=== PATIENT | female | born 1950 | race Caucasian/White ===

== ENCOUNTER 2019-10-07 13:13 | Inpatient (IN) ==
[2019-10-07] MEDS ORDERED: CeFAZolin Syr 2,000MG/20 ML 2,000 MG/20 ML SYRINGE IVPB ONE (13:28)
[2019-10-07] MEDS ORDERED: Ringers Solution, Lactated 1,000 ML IVC SCH ×2 (13:30→20:28)
[2019-10-07] MEDS ORDERED: Naloxone 0.4 MG/ML INJ IVP PRN ×2 (14:20→20:28)
[2019-10-07] MEDS ORDERED: *HR* Labetalol 20 MG/4 ML SYRINGE IVP PRN (14:20)
[2019-10-07] MEDS ORDERED: Gabapentin 300 MG CAPSULE PO ONE (14:20)
[2019-10-07] MEDS ORDERED: *HR* HYDROmorphone 2 MG/ML SYRINGE IVP PRN (14:20)
[2019-10-07] MEDS ORDERED: Ondansetron 4 MG/2 ML VIAL IVP ONE (14:20)
[2019-10-07] MEDS ORDERED: *HR* OxyCODONE Immed Rel 5 MG TABLET PO PRN (14:20)
[2019-10-07] MEDS ORDERED: *HR* FentaNYL (PF) 100 MCG/2 ML VIAL ONE (15:37)
[2019-10-07] MEDS ORDERED: *HR* Propofol 200 MG/20 ML VIAL IVP ONE (15:37)
[2019-10-07] MEDS ORDERED: Lidocaine -MPF 2% 2 ML VIAL ONE (15:37)
[2019-10-07] MEDS ORDERED: Ondansetron 4 MG/2 ML VIAL ONE (15:37)
[2019-10-07] MEDS ORDERED: *HR* Succinylcholine 200 MG/10 ML VIAL IVP ONE (15:37)
[2019-10-07] MEDS ORDERED: ROPIVACAINE/PF/NS 0.25% 1 EACH SYRINGE INTRAART ONE (15:46)
[2019-10-07] MEDS ORDERED: Ropivacaine/PF 0.5% 30 ML VIAL ONE (15:46)
[2019-10-07] MEDS ORDERED: Ethanol\\Acetic Acid\\Na Ace\\Ben 1,000 ML IRRIG.SOLN IR ONE (15:47)
[2019-10-07] MEDS ORDERED: Dexamethasone 4 MG/ML VIAL ONE (17:31)
[2019-10-07] MEDS ORDERED: *HR* Enoxaparin 30 MG/0.3 ML SYRINGE SQ SCH (18:00)
[2019-10-07 19:13] LABS: Hematocrit 27.6 % (35.3-44.9)
[2019-10-07 19:14] LABS: Hemoglobin 9.2 g/dL (11.5-15.4)
[2019-10-07] MEDS ORDERED: Sennosides 8.6 MG TABLET PO PRN (20:28)
[2019-10-07] MEDS ORDERED: MOM Conc 10 ML UD.LIQ PO PRN (20:28)
[2019-10-07] MEDS ORDERED: Ondansetron 4 MG/2 ML VIAL IVP PRN (20:28)
[2019-10-07] MEDS ORDERED: Temazepam 15 MG CAPSULE PO PRN (21:01)
[2019-10-07] MEDS: Pregabalin 75 MG CAPSULE PO SCH (22:11)
[2019-10-08 02:36] LABS: Hematocrit 29.3 % (35.3-44.9); Hemoglobin 9.8 g/dL (11.5-15.4)
[2019-10-08 02:54] LABS: Calcium 8.8 mg/dL (8.6-10.3); Potassium 4.6 mEq/L (3.5-5.1)
[2019-10-08] MEDS: *HR* Enoxaparin 30 MG/0.3 ML SYRINGE SQ SCH ×2 (05:41→16:28)
[2019-10-08] MEDS: *HR* OxyCODONE Immed Rel 5 MG TABLET PO PRN ×4 (06:13→20:29)
[2019-10-08] MEDS ORDERED: (Mirabegron [Myrbetriq] 50 MG) PO SCH (09:00)
[2019-10-08] MEDS: Pregabalin 75 MG CAPSULE PO SCH ×2 (09:43→16:28)
[2019-10-08] MEDS: amLODIPine 5 MG TABLET PO SCH (09:44)
[2019-10-08] MEDS: Metoprolol XL (24 HR) Succ 25 MG TAB.ER.24H PO SCH (09:45)
[2019-10-08] MEDS: Vitamin B Complex/Vit C/Vit E 1 EACH TABLET PO SCH (09:45)
[2019-10-08] MEDS: (Mirabegron [Myrbetriq] 50 MG) PO SCH (12:58)
[2019-10-09] MEDS: *HR* OxyCODONE Immed Rel 5 MG TABLET PO PRN ×5 (00:44→21:56)
[2019-10-09 04:26] LABS: Hematocrit 25.7 % (35.3-44.9)
[2019-10-09 04:32] LABS: Hemoglobin 8.2 g/dL (11.5-15.4)
[2019-10-09 04:42] LABS: Calcium 8.5 mg/dL (8.6-10.3); Potassium 4.1 mEq/L (3.5-5.1)
[2019-10-09] MEDS: *HR* Enoxaparin 30 MG/0.3 ML SYRINGE SQ SCH ×2 (04:54→18:04)
[2019-10-09] MEDS: Metoprolol XL (24 HR) Succ 25 MG TAB.ER.24H PO SCH (10:15)
[2019-10-09] MEDS: Vitamin B Complex/Vit C/Vit E 1 EACH TABLET PO SCH (10:15)
[2019-10-09] MEDS: Pregabalin 75 MG CAPSULE PO SCH ×2 (10:15→18:04)
[2019-10-09] MEDS: amLODIPine 5 MG TABLET PO SCH (10:16)
[2019-10-09] MEDS: (Mirabegron [Myrbetriq] 50 MG) PO SCH (10:18)
[2019-10-10] MEDS: *HR* OxyCODONE/APAP 5/325 TABLET PO PRN (05:17)
[2019-10-10] MEDS: *HR* Enoxaparin 30 MG/0.3 ML SYRINGE SQ SCH ×2 (05:18→16:55)
[2019-10-10] MEDS: Metoprolol XL (24 HR) Succ 25 MG TAB.ER.24H PO SCH (09:36)
[2019-10-10] MEDS: amLODIPine 5 MG TABLET PO SCH (09:36)
[2019-10-10] MEDS: Pregabalin 75 MG CAPSULE PO SCH ×2 (09:36→16:54)
[2019-10-10] MEDS: Vitamin B Complex/Vit C/Vit E 1 EACH TABLET PO SCH (09:37)
[2019-10-10] MEDS: (Mirabegron [Myrbetriq] 50 MG) PO SCH (09:38)
[2019-10-10 09:49] LABS: Basophils % 0.3 %; Eosinophils # 0.3 K/mcL (0.0-0.6); Eosinophils % 2.1 %; Hematocrit 27.1 % (35.3-44.9); Hemoglobin 8.9 g/dL (11.5-15.4); Immature Granulocytes % 1.2 % (0-4); Lymphocytes # 3.1 K/mcL (0.6-4.6); Lymphocytes % 25.2 %; Mean Corpuscular HGB Conc 32.8 g/dL (31.6-35.5); Mean Corpuscular Hemoglobin 33.3 pg (28.0-33.3); Mean Corpuscular Volume 101.5 fL (83.0-100.0); Mean Platelet Volume 10.5 fL (9.4-12.4); Monocytes % 8.4 %; Neutrophils # 7.6 K/mcL (1.6-8.9); Platelet Count 167 K/mcL (140-400); Red Blood Count 2.67 M/mcL (3.82-4.97); Red Cell Distribution Width 14.6 % (11.5-14.5); Segmented Neutrophils % 62.8 %; White Blood Count 12.1 K/mcL (4.3-11.1)
[2019-10-10 10:22] LABS: Calcium 8.6 mg/dL (8.6-10.3); Potassium 4.2 mEq/L (3.5-5.1)
[2019-10-10] MEDS: *HR* OxyCODONE Immed Rel 5 MG TABLET PO PRN (22:05)
[2019-10-11] MEDS: *HR* Enoxaparin 30 MG/0.3 ML SYRINGE SQ SCH (06:01)
[2019-10-11 08:16] LABS: Basophils % 0.2 %; Eosinophils # 0.3 K/mcL (0.0-0.6); Eosinophils % 2.6 %; Hematocrit 27.4 % (35.3-44.9); Hemoglobin 8.9 g/dL (11.5-15.4); Immature Granulocytes % 0.9 % (0-4); Lymphocytes # 1.7 K/mcL (0.6-4.6); Lymphocytes % 16.2 %; Mean Corpuscular HGB Conc 32.5 g/dL (31.6-35.5); Mean Corpuscular Volume 101.5 fL (83.0-100.0); Mean Platelet Volume 10.8 fL (9.4-12.4); Monocytes # 0.7 K/mcL (0.0-1.3); Monocytes % 6.2 %; Platelet Count 154 K/mcL (140-400); Red Cell Distribution Width 14.7 % (11.5-14.5); Segmented Neutrophils % 73.9 %; White Blood Count 10.8 K/mcL (4.3-11.1)
[2019-10-11 08:26] LABS: Calcium 8.6 mg/dL (8.6-10.3)
[2019-10-11] MEDS: Vitamin B Complex/Vit C/Vit E 1 EACH TABLET PO SCH (09:01)
[2019-10-11] MEDS: Metoprolol XL (24 HR) Succ 25 MG TAB.ER.24H PO SCH (09:01)
[2019-10-11] MEDS: Pregabalin 75 MG CAPSULE PO SCH (09:01)
[2019-10-11] MEDS: amLODIPine 5 MG TABLET PO SCH (09:02)
[2019-10-11] MEDS: (Mirabegron [Myrbetriq] 50 MG) PO SCH (09:03)
[2019-10-11] MEDS: *HR* OxyCODONE/APAP 5/325 TABLET PO PRN (09:07)
[2019-10-11 15:51] VITALS: BP 122/70
== END 2019-10-11 17:08 | DRG 483 ==
LOC: SAMDAY 13:13 → 3NENU 13:36
PROVIDERS: ADMIT Orthopaedic Surgery; ATTEND Orthopaedic Surgery

== ENCOUNTER 2020-09-04 13:41 | Inpatient (IN) ==
[2020-09-04] MEDS ORDERED: Naloxone 0.4 MG/ML INJ IVP PRN (16:55)
[2020-09-04] MEDS ORDERED: *HR* Promethazine 25 MG/ML VIAL IM PRN (17:26)
[2020-09-05 05:21] LABS: Hemoglobin 12.5 g/dL (11.5-15.4); Lymphocytes % 7.8 %; Mean Platelet Volume 10.9 fL (9.4-12.4)
[2020-09-05 05:22] LABS: Basophils % 0.6 %; Hematocrit 39.1 % (35.3-44.9); Immature Granulocytes % 6.9 % (0-4); Immature Platelets 6.6 % (1.1-6.1); Lymphocytes # 0.5 K/mcL (0.6-4.6); Mean Corpuscular Hemoglobin 30.9 pg (28.0-33.3); Mean Corpuscular Volume 96.5 fL (83.0-100.0); Monocytes # 0.5 K/mcL (0.0-1.3); Neutrophils # 4.9 K/mcL (1.6-8.9); Platelet Count 133 K/mcL (140-400); Red Blood Count 4.05 M/mcL (3.82-4.97); Segmented Neutrophils % 76.7 %; White Blood Count 6.4 K/mcL (4.3-11.1)
[2020-09-05 05:40] LABS: BUN/Creatinine Ratio 26 (6-26); Blood Urea Nitrogen 27 mg/dL (8-23); Calcium 8.8 mg/dL (8.6-10.3); Carbon Dioxide 23 mEq/L (23-29); Chloride 104 mEq/L (98-107); Glucose 165 mg/dL (70-105); Osmolality,Calculated 295 (280-300); Potassium 4.1 mEq/L (3.5-5.1); Sodium 138 mEq/L (136-145); eGFR For African Americans > 60 (> 60); eGFR For Non-African Americans 53 (> 60)
[2020-09-05 05:53] LABS: Anisocytosis 1+ (Not Present); Platelet Estimate Slight Decrease (Normal)
[2020-09-05] MEDS: *HR* Enoxaparin 40 MG/0.4 ML SYRINGE SQ SCH (06:40)
[2020-09-05] MEDS: cefTRIAXone 1,000 MG in Water for inj. (sterile) 10 ML IVP SCH (08:55)
[2020-09-05] MEDS: Furosemide 40 MG/4 ML VIAL IVP SCH (08:55)
[2020-09-05] MEDS: Dexamethasone 4 MG/ML VIAL IVP SCH (08:55)
[2020-09-05] MEDS: Spironolactone 25 MG TABLET PO SCH (08:56)
[2020-09-05] MEDS: Azithromycin 500 MG in 0.9 % Sodium Chloride 250 ML IVPB SCH (08:56)
[2020-09-05] MEDS: Metoprolol XL (24 HR) Succ 25 MG TAB.ER.24H PO SCH (15:26)
[2020-09-05] MEDS: amLODIPine 5 MG TABLET PO SCH (15:26)
[2020-09-05 15:50] LABS: Creatine Kinase 295 Units/L (30-223)
[2020-09-05] MEDS: Pregabalin 50 MG CAPSULE PO SCH (19:28)
[2020-09-05] MEDS: Melatonin 3 MG TABLET PO SCH (19:28)
[2020-09-06 04:09] LABS: Basophils % 0.3 %; Hematocrit 33.8 % (35.3-44.9); Hemoglobin 11.3 g/dL (11.5-15.4); Immature Granulocytes % 3.1 % (0-4); Lymphocytes # 0.7 K/mcL (0.6-4.6); Lymphocytes % 6.9 %; Mean Corpuscular HGB Conc 33.4 g/dL (31.6-35.5); Mean Corpuscular Hemoglobin 31.2 pg (28.0-33.3); Mean Corpuscular Volume 93.4 fL (83.0-100.0); Mean Platelet Volume 10.9 fL (9.4-12.4); Monocytes # 0.7 K/mcL (0.0-1.3); Monocytes % 7.3 %; Neutrophils # 7.8 K/mcL (1.6-8.9); Platelet Count 123 K/mcL (140-400); Red Blood Count 3.62 M/mcL (3.82-4.97); Red Cell Distribution Width 12.9 % (11.5-14.5); Segmented Neutrophils % 82.4 %; White Blood Count 9.4 K/mcL (4.3-11.1)
[2020-09-06 04:13] LABS: Albumin/Globulin Ratio 0.9 (1.1-2.2); Bilirubin,Direct 0.1 mg/dL (0.0-0.2); Bilirubin,Indirect 0.3 mg/dL (0.0-1.0); Bilirubin,Total 0.4 mg/dL (0.3-1.0); Calcium 8.5 mg/dL (8.6-10.3); Globulin 3.3 g/dL (2.4-3.5); Potassium 4.4 mEq/L (3.5-5.1); Total Protein 6.3 g/dL (6.4-8.9)
[2020-09-06] MEDS: *HR* Enoxaparin 40 MG/0.4 ML SYRINGE SQ SCH (05:16)
[2020-09-06] MEDS: Azithromycin 500 MG in 0.9 % Sodium Chloride 250 ML IVPB SCH (08:10)
[2020-09-06] MEDS: Furosemide 40 MG/4 ML VIAL IVP SCH (08:11)
[2020-09-06] MEDS: cefTRIAXone 1,000 MG in Water for inj. (sterile) 10 ML IVP SCH (08:11)
[2020-09-06] MEDS: Dexamethasone 4 MG/ML VIAL IVP SCH (08:11)
[2020-09-06] MEDS: Pregabalin 50 MG CAPSULE PO SCH ×2 (08:12→20:48)
[2020-09-06] MEDS: Metoprolol XL (24 HR) Succ 25 MG TAB.ER.24H PO SCH (08:12)
[2020-09-06] MEDS: Spironolactone 25 MG TABLET PO SCH (08:12)
[2020-09-06] MEDS: Vitamin B Complex/Vit C/Vit E 1 EACH TABLET PO SCH (08:12)
[2020-09-06] MEDS: amLODIPine 5 MG TABLET PO SCH (08:12)
[2020-09-06] MEDS: Melatonin 3 MG TABLET PO SCH (20:48)
[2020-09-06] MEDS ORDERED: 0.9 % Sodium Chloride 250 ML ONE (23:58)
[2020-09-07] MEDS ORDERED: *HR* LORazepam 1 MG TABLET PO ONE (02:36)
[2020-09-07 03:58] LABS: Basophils % 0.3 %; Eosinophils % 0.1 %; Hematocrit 34.5 % (35.3-44.9); Immature Granulocytes % 3.6 % (0-4); Lymphocytes # 0.9 K/mcL (0.6-4.6); Lymphocytes % 8.4 %; Mean Corpuscular HGB Conc 31.9 g/dL (31.6-35.5); Mean Corpuscular Hemoglobin 30.7 pg (28.0-33.3); Mean Corpuscular Volume 96.4 fL (83.0-100.0); Mean Platelet Volume 10.9 fL (9.4-12.4); Monocytes # 0.8 K/mcL (0.0-1.3); Monocytes % 7.6 %; Neutrophils # 8.6 K/mcL (1.6-8.9); Platelet Count 134 K/mcL (140-400); Red Blood Count 3.58 M/mcL (3.82-4.97); Red Cell Distribution Width 12.8 % (11.5-14.5); White Blood Count 10.8 K/mcL (4.3-11.1)
[2020-09-07 04:11] LABS: Calcium 8.9 mg/dL (8.6-10.3); Potassium 4.8 mEq/L (3.5-5.1)
[2020-09-07] MEDS: *HR* Enoxaparin 40 MG/0.4 ML SYRINGE SQ SCH (06:49)
[2020-09-07] MEDS: Azithromycin 250 MG TABLET PO SCH (08:40)
[2020-09-07] MEDS: Vitamin B Complex/Vit C/Vit E 1 EACH TABLET PO SCH (08:41)
[2020-09-07] MEDS: Dexamethasone 4 MG/ML VIAL IVP SCH (08:41)
[2020-09-07] MEDS: Pregabalin 50 MG CAPSULE PO SCH ×2 (08:41→20:07)
[2020-09-07] MEDS: amLODIPine 5 MG TABLET PO SCH (08:41)
[2020-09-07] MEDS: cefTRIAXone 1,000 MG in Water for inj. (sterile) 10 ML IVP SCH (08:42)
[2020-09-07] MEDS ORDERED: Metoprolol XL (24 HR) Succ 25 MG TAB.ER.24H PO SCH (09:00)
[2020-09-07] MEDS: Melatonin 3 MG TABLET PO SCH (20:07)
[2020-09-08 03:30] LABS: Hematocrit 35.7 % (35.3-44.9); Hemoglobin 11.6 g/dL (11.5-15.4); Mean Corpuscular HGB Conc 32.5 g/dL (31.6-35.5); Mean Corpuscular Hemoglobin 31.1 pg (28.0-33.3); Mean Corpuscular Volume 95.7 fL (83.0-100.0); Mean Platelet Volume 11.6 fL (9.4-12.4); Platelet Count 151 K/mcL (140-400); Red Blood Count 3.73 M/mcL (3.82-4.97); Red Cell Distribution Width 12.7 % (11.5-14.5); White Blood Count 14.8 K/mcL (4.3-11.1)
[2020-09-08 03:46] LABS: Calcium 8.6 mg/dL (8.6-10.3); Magnesium 1.9 mg/dL (1.6-2.6); Potassium 4.7 mEq/L (3.5-5.1)
[2020-09-08 04:43] LABS: Lymphocytes # 2.7 K/mcL (0.6-4.6); Monocytes # 0.6 K/mcL (0.0-1.3); Neutrophils # 11.5 K/mcL (1.6-8.9)
[2020-09-08] MEDS: *HR* Enoxaparin 40 MG/0.4 ML SYRINGE SQ SCH (05:04)
[2020-09-08] MEDS: Azithromycin 250 MG TABLET PO SCH (08:03)
[2020-09-08] MEDS: Metoprolol XL (24 HR) Succ 25 MG TAB.ER.24H PO SCH (08:03)
[2020-09-08] MEDS: Pregabalin 50 MG CAPSULE PO SCH ×2 (08:03→20:50)
[2020-09-08] MEDS: Vitamin B Complex/Vit C/Vit E 1 EACH TABLET PO SCH (08:04)
[2020-09-08] MEDS: Dexamethasone 4 MG/ML VIAL IVP SCH (08:04)
[2020-09-08] MEDS: amLODIPine 5 MG TABLET PO SCH (08:04)
[2020-09-08] MEDS: cefTRIAXone 1,000 MG in Water for inj. (sterile) 10 ML IVP SCH (08:05)
[2020-09-08 12:40] LABS: Bilirubin,Urine Negative (Negative); Blood,Urine Negative (Negative); Clarity,Urine Clear (Clear); Color,Urine Yellow (Yellow); Glucose,Urine (UA) Normal (Normal); Ketones,Urine Negative (Negative); Leukocyte Esterase,Urine Negative (Negative); Nitrite,Urine Negative (Negative); Protein,Urine Negative (Neg-Trace); Specific Gravity,Urine 1.012 (1.010-1.025); Urobilinogen,Urine Normal (Normal)
[2020-09-08] MEDS: Ipratropium 1 PUFF INHALER IH SCH ×2 (16:37→22:05)
[2020-09-08] MEDS: Acetaminophen 325 MG TABLET PO PRN (19:40)
[2020-09-08] MEDS: Melatonin 3 MG TABLET PO SCH (21:10)
[2020-09-09] MEDS: Acetaminophen 325 MG TABLET PO PRN (03:46)
[2020-09-09] MEDS: Ipratropium 1 PUFF INHALER IH SCH ×2 (04:03→11:21)
[2020-09-09] MEDS ORDERED: *HR* Enoxaparin 30 MG/0.3 ML SYRINGE SQ SCH (06:00)
[2020-09-09 07:33] LABS: Hematocrit 32.9 % (35.3-44.9); Hemoglobin 10.5 g/dL (11.5-15.4); Lymphocytes # 1.3 K/mcL (0.6-4.6); Mean Corpuscular HGB Conc 31.9 g/dL (31.6-35.5); Mean Corpuscular Hemoglobin 30.7 pg (28.0-33.3); Mean Corpuscular Volume 96.2 fL (83.0-100.0); Mean Platelet Volume 10.7 fL (9.4-12.4); Platelet Count 132 K/mcL (140-400); Red Blood Count 3.42 M/mcL (3.82-4.97); Red Cell Distribution Width 12.7 % (11.5-14.5); White Blood Count 12.5 K/mcL (4.3-11.1)
[2020-09-09 07:52] LABS: Calcium 8.4 mg/dL (8.6-10.3); Monocytes # 0.5 K/mcL (0.0-1.3); Neutrophils # 10.8 K/mcL (1.6-8.9); Potassium 4.4 mEq/L (3.5-5.1)
[2020-09-09 07:53] LABS: Platelet Estimate Normal (Normal)
[2020-09-09] MEDS: Dexamethasone 4 MG/ML VIAL IVP SCH (08:30)
[2020-09-09] MEDS: cefTRIAXone 1,000 MG in Water for inj. (sterile) 10 ML IVP SCH (08:30)
[2020-09-09] MEDS: Azithromycin 250 MG TABLET PO SCH (08:31)
[2020-09-09] MEDS: Metoprolol XL (24 HR) Succ 25 MG TAB.ER.24H PO SCH (08:31)
[2020-09-09] MEDS: Vitamin B Complex/Vit C/Vit E 1 EACH TABLET PO SCH (08:31)
[2020-09-09] MEDS: amLODIPine 5 MG TABLET PO SCH (08:32)
[2020-09-09] MEDS: Pregabalin 50 MG CAPSULE PO SCH (08:33)
[2020-09-09 09:01] VITALS: BP 145/64
== END 2020-09-09 14:30 | disposition home or self-care (01) | DRG 177 ==
LOC: 2NENU → SUATTDRO 15:39
PROVIDERS: ADMIT Internal Medicine; ATTEND Pharmacist

== ENCOUNTER 2022-07-11 11:31 | Observation (INO) ==
[2022-07-11] MEDS ORDERED: Morphine Sulfate 2 MG/ML SYRINGE IVP ONE (13:25)
[2022-07-11] MEDS ORDERED: Ondansetron 4 MG/2 ML VIAL IVP ONE (13:25)
[2022-07-11] MEDS ORDERED: cefTRIAXone 1,000 MG in 0.9 % Sodium Chloride 10 ML IVP ONE (13:28)
[2022-07-11] MEDS ORDERED: MetroNIDAZOLE 500 MG/100 ML 500 MG/100 ML BAG IVPB ONE (13:28)
[2022-07-11] MEDS ORDERED: 0.9 % Sodium Chloride 1,000 ML IVC ONE (13:30)
[2022-07-11] MEDS ORDERED: Famotidine 20 MG/2 ML VIAL IVP ONE (13:33)
[2022-07-11 13:37] LABS: Basophils # 0.1 K/mcL (0.0-0.2); Basophils % 0.4 %; Eosinophils # 0.3 K/mcL (0.0-0.6); Eosinophils % 1.8 %; Hematocrit 43.5 % (35.3-44.9); Hemoglobin 13.9 g/dL (11.5-15.4); Immature Granulocytes % 1.2 % (0-4); Lymphocytes # 1.7 K/mcL (0.6-4.6); Lymphocytes % 12.3 %; Mean Corpuscular Hemoglobin 30.8 pg (28.0-33.3); Mean Corpuscular Volume 96.5 fL (83.0-100.0); Mean Platelet Volume 10.4 fL (9.4-12.4); Neutrophils # 10.6 K/mcL (1.6-8.9); Platelet Count 195 K/mcL (140-400); Red Blood Count 4.51 M/mcL (3.82-4.97); Red Cell Distribution Width 14.2 % (11.5-14.5); Segmented Neutrophils % 77.3 %; White Blood Count 13.7 K/mcL (4.3-11.1)
[2022-07-11 13:57] LABS: Alanine Aminotransferase 7 Units/L (7-52); Albumin 3.8 g/dL (3.5-5.7); Albumin/Globulin Ratio 1.2 (1.1-2.2); Alkaline Phosphatase 80 Units/L (34-104); Aspartate Amino Transferase 18 Units/L (13-39); BUN/Creatinine Ratio 14 (6-26); Bilirubin,Direct 0.2 mg/dL (0.0-0.2); Bilirubin,Indirect 0.4 mg/dL (0.0-1.0); Bilirubin,Total 0.6 mg/dL (0.3-1.0); Blood Urea Nitrogen 17 mg/dL (8-23); Calcium 9.2 mg/dL (8.6-10.3); Carbon Dioxide 20 mEq/L (23-29); Chloride 104 mEq/L (98-107); Globulin 3.2 g/dL (2.4-3.5); Glucose 150 mg/dL (70-105); Lipase 33 Units/L (11-82); Osmolality,Calculated 290 (280-300); Sodium 138 mEq/L (136-145); Troponin I < 0.03 ng/mL (< 0.04)
[2022-07-11 14:04] LABS: Bilirubin,Urine Negative (Negative); Blood,Urine Negative (Negative); Clarity,Urine Clear (Clear); Color,Urine Yellow (Yellow); Glucose,Urine (UA) Normal (Normal); Granular Casts,Urine Few per lpf (None Seen); Hyaline Casts,Urine Moderate per lpf (None Seen); Ketones,Urine 40 mg/dL (Negative); Leukocyte Esterase,Urine Moderate (Negative); Mucus,Urine Few per lpf (None-Few); Nitrite,Urine Negative (Negative); PH,Urine 5.5 pH Units (5.0-8.0); Protein,Urine Trace mg/dL (Neg-Trace); RBC,Urine 0-3 per hpf (0-3); Specific Gravity,Urine 1.024 (1.010-1.025); Squamous Epithelial Cell,Urine Moderate per hpf (None-Few); Urobilinogen,Urine Normal (Normal); WBC,Urine 0-3 per hpf (0-3)
[2022-07-11] MEDS ORDERED: Ondansetron 4 MG/2 ML VIAL IVP PRN (18:14)
[2022-07-11] MEDS ORDERED: Naloxone 0.4 MG/ML INJ IVP PRN (18:14)
[2022-07-11] MEDS ORDERED: NON-FORMULARY MEDICATION 1 EACH EACH (Ipratropium/Albuterol Sulfate 4 GM Mist.Inhal) IH PRN (18:16)
[2022-07-11] MEDS ORDERED: Ipratropium 1 PUFF INHALER IH PRN (18:26)
[2022-07-11] MEDS: Ringers Solution, Lactated 1,000 ML IVC SCH (22:18)
[2022-07-11] MEDS: Topiramate 25 MG TABLET PO SCH (22:18)
[2022-07-11] MEDS: MetroNIDAZOLE 500 MG/100 ML 500 MG/100 ML BAG IVPB SCH (23:35)
[2022-07-12 02:00] LABS: Basophils % 0.3 %; Eosinophils # 0.2 K/mcL (0.0-0.6); Eosinophils % 2.5 %; Hematocrit 29.7 % (35.3-44.9); Lymphocytes # 1.1 K/mcL (0.6-4.6); Lymphocytes % 12.2 %; Mean Corpuscular HGB Conc 32.3 g/dL (31.6-35.5); Mean Corpuscular Hemoglobin 31.5 pg (28.0-33.3); Mean Corpuscular Volume 97.4 fL (83.0-100.0); Mean Platelet Volume 10.4 fL (9.4-12.4); Monocytes # 0.7 K/mcL (0.0-1.3); Monocytes % 7.2 %; Neutrophils # 7.1 K/mcL (1.6-8.9); Platelet Count 113 K/mcL (140-400); Red Blood Count 3.05 M/mcL (3.82-4.97); Red Cell Distribution Width 14.3 % (11.5-14.5); Segmented Neutrophils % 76.8 %; White Blood Count 9.2 K/mcL (4.3-11.1)
[2022-07-12 02:04] LABS: Hemoglobin 9.6 g/dL (11.5-15.4)
[2022-07-12 02:20] LABS: Alanine Aminotransferase 3 Units/L (7-52); Albumin 2.2 g/dL (3.5-5.7); Albumin/Globulin Ratio 1.1 (1.1-2.2); Alkaline Phosphatase 43 Units/L (34-104); Aspartate Amino Transferase 11 Units/L (13-39); BUN/Creatinine Ratio 16 (6-26); Bilirubin,Total 0.3 mg/dL (0.3-1.0); Blood Urea Nitrogen 11 mg/dL (8-23); Calcium 7.2 mg/dL (8.6-10.3); Carbon Dioxide 12 mEq/L (23-29); Chloride 110 mEq/L (98-107); Glucose 100 mg/dL (70-105); Osmolality,Calculated 281 (280-300); Potassium 3.9 mEq/L (3.5-5.1); Sodium 136 mEq/L (136-145); Total Protein 4.2 g/dL (6.4-8.9)
[2022-07-12] MEDS: Acetaminophen 325 MG TABLET PO PRN ×2 (08:20→14:36)
[2022-07-12] MEDS: Ringers Solution, Lactated 1,000 ML IVC SCH (08:20)
[2022-07-12] MEDS: MetroNIDAZOLE 500 MG/100 ML 500 MG/100 ML BAG IVPB SCH ×3 (08:20→23:11)
[2022-07-12] MEDS: amLODIPine 5 MG TABLET PO SCH (08:20)
[2022-07-12] MEDS: Metoprolol XL (24 HR) Succ 25 MG TAB.ER.24H PO SCH (08:21)
[2022-07-12] MEDS: calcitrioL 0.25 MCG CAPSULE PO SCH (08:21)
[2022-07-12] MEDS: Topiramate 25 MG TABLET PO SCH ×2 (08:21→21:29)
[2022-07-12] MEDS ORDERED: Naloxone 0.4 MG/ML INJ IVP PRN (08:38)
[2022-07-12] MEDS ORDERED: cefTRIAXone 1,000 MG in Water for inj. (sterile) 10 ML IVP SCH (14:00)
[2022-07-13 02:08] LABS: Hematocrit 36.6 % (35.3-44.9); Mean Corpuscular HGB Conc 32.5 g/dL (31.6-35.5); Mean Corpuscular Hemoglobin 30.9 pg (28.0-33.3); Mean Corpuscular Volume 95.1 fL (83.0-100.0); Platelet Count 150 K/mcL (140-400); Red Blood Count 3.85 M/mcL (3.82-4.97); Red Cell Distribution Width 14.3 % (11.5-14.5); White Blood Count 9.6 K/mcL (4.3-11.1)
[2022-07-13 02:11] LABS: Hemoglobin 11.9 g/dL (11.5-15.4)
[2022-07-13 02:23] LABS: Calcium 8.3 mg/dL (8.6-10.3); Potassium 3.9 mEq/L (3.5-5.1)
[2022-07-13] MEDS: MetroNIDAZOLE 500 MG/100 ML 500 MG/100 ML BAG IVPB SCH (07:57)
[2022-07-13] MEDS: amLODIPine 5 MG TABLET PO SCH (07:58)
[2022-07-13] MEDS: calcitrioL 0.25 MCG CAPSULE PO SCH (07:58)
[2022-07-13] MEDS: Topiramate 25 MG TABLET PO SCH (07:58)
[2022-07-13] MEDS: Metoprolol XL (24 HR) Succ 25 MG TAB.ER.24H PO SCH (07:58)
[2022-07-13 11:28] VITALS: BP 137/85; PULSE 78; TEMP 98.4; O2SAT 91
== END 2022-07-13 12:29 | disposition home or self-care (01) ==
LOC: EMEROOARM 11:31 → 3BNU 11:31
PROVIDERS: ADMIT Student in an Organized Health Care Education/Training Program; ATTEND Student in an Organized Health Care Education/Training Program